=== PATIENT | female | born 1940 | race Caucasian/White ===

== ENCOUNTER → 2022-01-07 | Outpatient (CLI) | payer MEDICARE, OTHER ==
[2022-01-07 13:35] LABS: BASO % 1 % (0-3); EOS # 0.1 x10^3/uL (0.0-0.7); EOS % 2 % (0-3); HEMOGLOBIN 7.3 g/dL (12.0-15.5); LYMPH # 0.9 x10^3/uL (1.0-4.8); LYMPH % 20 % (24-48); MEAN CORPUSCULAR HEMOGLOBIN 25 pg (25-35); MEAN CORPUSCULAR HGB CONC 30 g/dL (31-37); MEAN CORPUSCULAR VOLUME 82 fL (79-100); MONO # 0.5 x10^3/uL (0.0-1.1); MONO % 11 % (0-9); NEUT # 3.2 x10^3uL (1.8-7.7); NEUT % 67 % (31-73); PLATELET COUNT 171 x10^3/uL (140-400); RED BLOOD COUNT 2.93 x10^6/uL (3.50-5.40); RED CELL DISTRIBUTION WIDTH 18.1 % (11.5-14.5); WHITE BLOOD COUNT 4.8 x10^3/uL (4.0-11.0)
[2022-01-07 13:53] LABS: ALBUMIN 3.5 g/dL (3.4-5.0); ALBUMIN/GLOBULIN RATIO 0.9 (1.0-1.7); CALCIUM 9.3 mg/dL (8.5-10.1); CREATININE 0.7 mg/dL (0.6-1.0); GFR 80.3; POTASSIUM 4.1 mmol/L (3.5-5.1); TOTAL BILIRUBIN 0.6 mg/dL (0.2-1.0); TOTAL PROTEIN 7.6 g/dL (6.4-8.2)
--- NOTE | 2022-01-07 17:30 | RAD ---
XR CHEST 2V History: Shortness of breath Comparison: None. Technique: PA and lateral chest radiographs. Findings: There is a left chest dual-chamber pacemaker. Bilateral interstitial prominence. Right greater than l eft basilar consolidations. Small right effusion. 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 Postsurgical changes of the mediastinum. No pneumothorax. Osseous structures and soft tissues are unremarkable. Impression: 1. Cardiomegaly, valvular replacements and interstitial prominence with right pleural effusion likel y represents pulmonary edema. 2. Mild bibasilar opacities likely represent atelectasis, superimposed infection cannot be excluded. Electronically signed by: Jorgito Bolton MD (01/07/2022 5:27 PM) [id number]
== END ==
LOC: RAD 12:49
PROVIDERS: ATTEND Family Medicine
DX: I51.7 Cardiomegaly (principal); J90 Pleural effusion, not elsewhere classified; R91.8 Other nonspecific abnormal finding of lung field; J81.0 Acute pulmonary edema; R06.02 Shortness of breath; Z95.0 Presence of cardiac pacemaker; Z95.4 Presence of other heart-valve replacement
CPT/HCPCS: 36415; 71046; 80053; 83880; 84484; 85025

== ENCOUNTER → 2022-02-26 | Outpatient (CLI) | payer MEDICARE, OTHER ==
--- NOTE | 2022-02-26 14:26 | RAD ---
EXAM: US ABDOMEN OR LOWER BACK LIMITED 02/26/2022 12:38 PM CLINICAL INDICATION: Abdominal wall hematoma, bruising. COMPARISON: None TECHNIQUE: Grayscale and color Doppler ultrasound of the right lower abdominal wall in the area of c oncern. FINDINGS: There is a 7.9 x 8.4 x 8.8 cm heterogeneous hypoechoic collection within the right abdomin al wall. No internal vascularity. There is surrounding subcutaneous edema in this area. IMPRESSION: 8.8 cm heterogeneous collection without blood flow in the abdominal wall, likely a hemat salvatore. Recommend follow-up ultrasound in 6-8 weeks to ensure resolution. Electronically signed by: Tamia Lam MD (02/26/2022 2:24 PM) [id number]
== END ==
LOC: US 12:31
PROVIDERS: ATTEND Internal Medicine
DX: S30.1XXA Contusion of abdominal wall, initial encounter (principal); X58.XXXA Exposure to other specified factors, initial encounter; Y93.89 Activity, other specified; Y92.89 Other specified places as the place of occurrence of the external cause; Y99.8 Other external cause status
CPT/HCPCS: 76705